=== PATIENT | male | born 1970 ===

== ENCOUNTER 2020-07-05 14:26 | Outpatient (REF) | payer SELFPAY ==
[2020-07-09 22:16] LABS: SARS-CoV-2 RNA Undetected (Undetected); SARS-CoV-2 Specimen Source Nasal
== END 2020-07-05 14:46 ==
LOC: NCHCN 14:26
PROVIDERS: Visit Provider Family Medicine
DX: Z20.828 Contact with and (suspected) exposure to other viral communicable diseases (principal)
CPT/HCPCS: U0003

== ENCOUNTER 2020-07-18 14:17 | Outpatient (REF) | payer SELFPAY ==
[2020-07-21 16:59] LABS: COVID-19 RT-PCR Result NEGATIVE (Negative)
== END 2020-07-18 14:37 ==
LOC: NCHCN 14:17
PROVIDERS: PCP Family Medicine; Visit Provider Family Medicine
DX: Z11.59 Encounter for screening for other viral diseases (principal)
CPT/HCPCS: U0003

== ENCOUNTER 2021-07-09 13:38 | Outpatient (REF) | payer SELFPAY ==
[2021-07-10 15:49] LABS: COVID-19 RT-PCR UVMMC Result Negative (Negative)
== END 2021-07-09 13:39 | disposition home or self-care (01) ==
LOC: NCHCN 13:38
PROVIDERS: PCP Family Medicine; Visit Provider Family Medicine
DX: Z20.822 Contact with and (suspected) exposure to COVID-19 (principal)
CPT/HCPCS: U0003